=== PATIENT | male | born 1960 | race Caucasian/White ===

== ENCOUNTER 2024-03-07 12:57 | Emergency (ER) | payer OTHER, SELFPAY ==
[2024-03-07] VITALS (31 sets, daily range): BP systolic 111–151; BP diastolic 65–91; PULSE 71–132; RESP 13–23; TEMP 36.8; O2SAT 94–100
--- NOTE | 2024-03-07 13:00 | DI.CT_ITS ---
Exam(s) CT CHEST/ABD/PEL W EXAM: CT CHEST/ABD/PEL W CLINICAL HISTORY: trauma, fall off roof, mid to low back pain. TECHNIQUE: Imaging Protocol: Axial computed tomography images with coronal and sagittal reformatted images were created and reviewed CONTRAST MATERIAL: Intravenous: Omnipaque 350 Contrast volume:100 ml Oral: None COMPARISON: No exams were available for comparison FINDINGS: CHEST: LUNGS: Mild increased markings noted in the dependent aspects of both lungs. No large lung contusion nor pleural effusion. No pneumothorax evident. No incidental lung masses. No significant findings in the trachea and mainstem bronchi.. MEDIASTINUM: No evidence of sternal fracture or mediastinal hematoma. Visualized thyroid unremarkabl e.No incidental hilar nor mediastinal adenopathy. Small hiatal hernia noted. CARDIAC: Heart size is normal. There is no pericardial effusion.Thoracic aorta is intact. No aneury sm. No dissection. OSSEOUS: No clavicle fractures. No scapular fractures. No obvious rib fractures.Compression fractur e of T12 which extends into the right pedicle and with 5 mm retropulsion of the posterior cortex whic h compresses the thecal sac. Also fracture of the T11 spinous process and fractures of the right tra nsverse process is of L1 and L2.. ABDOMEN: There is no ascites. No evidence of bowel wall nor mesenteric hematoma LIVER: Intact. No laceration evident. No subcapsular hematoma. No incidental liver lesions nor dil ated intrahepatic ducts. GALLBLADDER/BILIARY: No obvious gallbladder pathology. CBD is not dilated. PANCREAS: No incidental pancreatic masses. Pancreatic duct is not dilated. Pancreas appears unremar kable. SPLEEN: Intact. Normal size. No laceration. There are surgical clips medial to the spleen noted. Splenic and portal veins are patent. ADRENALS: There are no significant adrenal masses. KIDNEYS: There are no renal lacerations nor evidence of subcapsular hematomas. No focal findings in the right kidney. Tiny benign cyst in the inferior pole left kidney noted which does not require fol low-up.. No incidental significant renal masses. ABDOMINAL AORTA: Appears intact. No aneurysm. No dissection. No significant findings in the aortoi liac segments. LYMPH NODES: There is no retroperitoneal nor paraaortic adenopathy. ABDOMINAL WALL: No evidence of significant anterior abdominal wall nor inguinal hernia. No significa nt subcutaneous bruising evident. GI: There is no evidence of bowel obstruction. PELVIS: LYMPH NODES: There is no intrapelvic nor inguinal adenopathy. GI: No evidence of appendicitis.No evidence of sigmoid diverticulitis. URINARY BLADDER: Appears unremarkable. No intraluminal clots. Bladder is not distended. No inciden joy masses in the bladder. REPRODUCTIVE: Prostate size is normal. Seminal vesicles unremarkable. OSSEOUS: No evidence of pelvic nor hip fractures. Other fractures as described above. No diastasis of the symphysis pubis and SI joints. IMPRESSION: 1. Compression fracture of T12 with 5 mm retropulsion of the posterior cortex and compression of the thecal sac at this level. There is also a spinous process fracture of T11. 2. Also noted are mildly displaced acute appearing fractures of the right transverse processes of L1 and L2. 3. Other findings as above. RADIATION DOSE DELIVERED: 1,042.57mGy.cm Total DLP DATA REPOSITORY: All CT scans at this facility are submitted to the National Radiology Data Registry (NRDR) Dose Index Registry (DIR) with the [employer] (A[employer]). RADIATION OPTIMIZATION: All CT scans at this facility use at least one of these dose optimization te chniques: automated exposure control; mA and/or kV adjustment per patient size (includes targeted exa ms where dose is matched to clinical indication); or iterative reconstruction.
--- NOTE | 2024-03-07 13:00 | DI.CT_ITS ---
Exam(s) CT HEAD CERVICAL SPINE WO EXAM: CT HEAD CERVICAL SPINE WO CLINICAL HISTORY: trauma, fall off roof, loc, repetitive questions. TECHNIQUE: Imaging Protocol: Axial computed tomography images with coronal and sagittal reformatted images were created and reviewed COMPARISON: No exams were available for comparison FINDINGS: BRAIN: There are no skull fractures nor fluid in the visualized paranasal sinuses. There is no evidence of intracranial hemorrhage, mass effect, or shift of midline structures. There are no extra-axial fluid collections. The ventricles are not enlarged or shifted and there is no blo od within the ventricular system nor within the basal cisterns. CERVICAL SPINE: Odontoid and C1 arch are intact. There is multilevel anterior fusion/DISH-type findings at C3-C6 levels. There are no fractures the a nterior vertebral bodies. However, there comminuted and distracted fractures of the spinous process of C4 and C5. Spinous process fractures at these 2 levels approach the posterior aspects of the lami aron a bilaterally. There is no offset of the spinal laminar line. Pedicles are intact at these leve ls. Facet joints appear intact and without malalignment There is multilevel chronic degenerative disc disease. Multilevel mild central canal stenosis. No incidental osseous lesions evident in the cervical spine. IMPRESSION: No acute intracranial findings on this noninfused CT scan of the brain. There are comminuted and distracted fractures of the spinous process C4 and C5 which approach the pos terior aspects of the laminae of these vertebral bodies. However, there are no distinct fracture tor es through the laminae a and no offset of the spinal laminar line. Pedicles and anterior vertebral b odies are intact. There is thick calcification in the anterior longtitudinal ligament from C3-C6, in clusive, this resulting in an element of affective anterior fusion at these levels. Called by myself to ER position 3024 at 2 p.m. RADIATION DOSE DELIVERED: 1,521.14mGy.cm Total DLP DATA REPOSITORY: All CT scans at this facility are submitted to the National Radiology Data Registry (NRDR) Dose Index Registry (DIR) with the [employer] (ACR). RADIATION OPTIMIZATION: All CT scans at this facility use at least one of these dose optimization te chniques: automated exposure control; mA and/or kV adjustment per patient size (includes targeted exa ms where dose is matched to clinical indication); or iterative reconstruction.
--- NOTE | 2024-03-07 13:10 | DI.CT_ITS ---
Exam(s) CT THORACIC LUMBAR SPINE REC EXAM: CT THORACIC LUMBAR SPINE REC CLINICAL HISTORY: trauma, fall off roof, mid to low back pain TECHNIQUE: COMPARISON: CT CT CHEST/ABD/PEL W from 03/07/2024 FINDINGS: THORACIC SPINAL COLUMN: There is a acute compression fracture of T12 vertebral body. Fracture involves the posterior cortex which is retropulsed 5 mm with compression of the thecal sac at this level. The fracture extends int o the right pedicle and there is also fracture of the right transverse process at this level. Also f racture of the right transverse process of L1 and fracture of the right transverse process of L2. Tr ansverse process is of L3 and below are intact. There is a minimally displaced fracture of the spinous process of T11. LUMBOSACRAL SPINAL COLUMN: There are no compression fractures of the lumbar vertebrae. No listhesis. No pars defects. No face t malalignment. There are right-sided transverse process fractures of L1 and L2. No spinal canal st enosis. Sacroiliac joints appear unremarkable. No sacral fractures identified. IMPRESSION: Acute compression fracture of T12 with 5 mm retropulsion of the posterior cortex with compression of the thecal sac at this level. Fracture line extends into the anterior aspect of the right pedicle. Also noted is a fracture of the spinous process of T11. Also noted are mildly displace fractures of the right transverse process is of L1 and L2. See separate CT cervical spine report for significant cervical spine findings. Called by myself to ER physician
[2024-03-07 13:22] LABS: Abs Immature Grans 0.11 10^3/uL (0.0-0.06); Absolute Basophil Count 0.05 10^3/uL (0.0-0.2); Absolute Eosinophil Count 0.07 10^3/uL (0.0-0.7); Absolute Lymphocyte Count 0.82 10^3/uL (1.2-3.4); Absolute Monocyte Count 0.95 10^3/uL (0.1-0.8); Absolute Neutrophil Count 14.69 10^3/uL (1.2-6.7); Basophils % 0.3 %; Eosinophils % 0.4 %; HCT 43.1 % (40.0-50.0); HGB 14.8 g/dL (13.5-17.5); Immature Grans % 0.7 %; Lymphocytes % 4.9 %; MCH 31.7 pg (27.0-33.0); MCHC 34.3 % (32.0-36.0); MCV 92 fL (80-95); MPV 9.3 fL (8.0-11.0); Monocytes % 5.7 %; Platelet Count 259 10^3/uL (130-400); RBC 4.67 10^6/uL (4.36-5.78); RDW 13.7 % (11.8-14.1); RDW-SD 46.7 fL; WBC 16.69 10^3/uL (4.4-10.8)
[2024-03-07] MEDS: Normal Saline - Diluent 50 ML VIAL IJ (13:28)
[2024-03-07] MEDS: Omnipaque 350 MG/ML 100 ML BTL IJ (13:29)
[2024-03-07 13:39] LABS: ALT 34 U/L (16-63); AST 34 U/L (15-37); Albumin 3.8 g/dL (3.4-5.0); Alkaline Phosphatase 45 U/L (46-116); Anion Gap 7.6 mmol/L (3-11); BUN 16 mg/dL (7-18); Bilirubin, Total 0.75 mg/dL (0.2-1.0); CO2 26.4 mmol/L (21.0-32.0); CREATININE 1.1 mg/dL (0.70-1.30); Calcium 9.4 mg/dL (8.5-10.1); Chloride 104 mmol/L (98-107); Glucose 131 mg/dL (74-106); Potassium 4.4 mmol/L (3.5-5.1); Sodium 138 mmol/L (136-145); Total Protein 6.8 g/dL (6.4-8.2)
--- NOTE | 2024-03-07 13:40 | ED.GENADUL_ITS ---
Discharge Plan Disposition Patient Disposition: Transfer-Acute Inpatient Care Specific Acute Inpt Facility: [facility] Condition: Serious Discharge Details Clinical Impression: Closed T12 spinal fracture, Closed fracture of transverse process of lumbar vertebra, Closed fracture of spinous process of thoracic vertebra, Closed fracture of spinous process of cervical vertebra Primary Care Provider: Hilaria,Local ED Provider: Rodrick Estrada Home Meds and New Rx's Prescriptions: No Action zolpidem 7.5 mg capsule 7.5 mg PO PRN HPI General Mode of arrival: EMS . Date/Time Provider Initiated Documentation: 03/07/24 12:59 . Limitations to Documentation: no limitations . Information obtained by: patient and EMS . HPI Narrative: 63-year-old male presents with chief complaint of back pain. Patient notes that he accidentally fell off a 12 foot roof, ladder slipped as he was repairing chimney. He fell to the ground and did have loss of consciousness. He is noted to have repetitive questioning and route. Patient notes severe pain in his mid to low back. No associated numbness or tingling. He also notes some pain in his neck and mild headache. No chest pain or abdominal pain. He does have some pain in his left ankle. Related Data Home Medications ?Medication ?Instructions ?Recorded ?Confirmed zolpidem 7.5 mg capsule 7.5 mg PO PRN 03/07/24 03/07/24 Allergies Allergy/AdvReac Type Severity Reaction Status Date / Time No Known Allergies Allergy Unverified 03/07/24 13:11 General Stated Complaint: Trauma SUNDAR: 3 Review of Systems All systems reviewed & are unremarkable except as noted in HPI and below Musculoskeletal Musculoskeletal: Reports as per HPI Exam Const General: cooperative and no acute distress [facility] Head: normocephalic and atraumatic Mouth: moist mucous membranes Eyes Conjunctivae: normal conjunctivae Sclera: normal sclerae EOM: EOM intact bilaterally Neck Neck: trachea midline and supple Resp Auscultation: clear to auscultation bilaterally, no rales, no rhonchi and no wheezes Cardio Rate: regular rate and not tachycardic Rhythm: regular rhythm GI Palpation: soft, not firm, no guarding, no masses, not rigid and nontender Back/Spine/Pelvis Cervical Spine: collar present, cervical spinal tenderness and No step off deformity Thoracic/Lumbar Spine: thoracic spinal tenderness and lumbar spinal tenderness Skin General skin exam: no rashes or lesions noted Neuro General: patient alert, patient awake, patient oriented x3 and tone normal Cognition: normal cognition Motor: strength 5/5 throughout Sensory Exam: no sensory deficits noted Extrem General: no edema Psych Appearance: grossly normal Mental Status: mental status grossly normal Speech and Movement: speech and movement normal Course Vital Signs Vital signs: Vital Signs Temperature 36.8 C 03/07/24 13:00 Pulse 72 03/07/24 13:00 Respiratory Rate 20 03/07/24 13:00 Blood Pressure 114/65 03/07/24 13:00 Pulse Oximetry 97 03/07/24 13:00 Temperature 36.8 C 03/07/24 13:00 Temperature Source Oral 03/07/24 13:00 Pulse 72 03/07/24 13:00 Respiratory Rate 20 03/07/24 13:00 Blood Pressure 114/65 03/07/24 13:00 Blood Pressure Position Supine 03/07/24 13:00 Pulse Oximetry 97 03/07/24 13:00 Oxygen Delivery Method Room Air 03/07/24 13:00 Oxygen Flow Rate 0 03/07/24 13:00 Pain Level 8 03/07/24 13:00 Lab/Test Results Lab/Test Results: Laboratory Tests Range/Units 03/07/24 13:13 WBC (4.4-10.8) 10^3/uL 16.69 H RBC (4.36-5.78) 10^6/uL 4.67 Hgb (13.5-17.5) g/dL 14.8 Hct (40.0-50.0) % 43.1 MCV (80-95) fL 92 MCH (27.0-33.0) pg 31.7 MCHC (32.0-36.0) % 34.3 RDW (11.8-14.1) % 13.7 Plt Count (130-400) 10^3/uL 259 MPV (8.0-11.0) fL 9.3 Immature Gran % % 0.7 Neutrophils % % 88.0 Lymphocytes % % 4.9 Monocytes % % 5.7 Eosinophils % % 0.4 Basophils % % 0.3 Nucleated RBC % (0.0-0.3) % 0.0 Absolute Neutrophils (1.2-6.7) 10^3/uL 14.69 H Absolute Lymphocytes (1.2-3.4) 10^3/uL 0.82 L Absolute Monocytes (0.1-0.8) 10^3/uL 0.95 H Absolute Eosinophils (0.0-0.7) 10^3/uL 0.07 Absolute Basophils (0.0-0.2) 10^3/uL 0.05 Medical Decision Making 7804 -- 63-year-old male here with mid to low back pain after 12 foot fall from roof. Patient hemodynamically stable. Airway intact. Saturating well in no respiratory distress. Concern for acute spinal fracture. Consider acute intracranial traumatic hemorrhage. Considered solid organ injury. CT of the head was interpreted by radiology as negative. CT of the cervical spine was interpreted by radiology: Spinous process C4 and C5 with mild displacement. CT of the thoracic and lumbar spine interpreted by radiology: T12 fracture with 5 mm of retropulsion, T11 spinous process fracture, L1 and L2 right transverse process fracture. CT of the abdomen pelvis was interpreted by radiology as negative other than noted spinal fractures. Patient does have some contusion to left distal tib-fib anteriorly with mild swelling. I will obtain x-ray. I have placed a call to [facility] [place] to request transfer to trauma team. CT imaging sent for review. Awaiting callback. Patient was given Dilaudid and acetaminophen IV for pain. 1530 --I spoke with Dr. Wetzel, [facility] trauma surgeon, discussed ED presentation course, he will accept the patient in transfer. He recommends maintaining c- collar and spinal mobilization. Left ankle x-ray was interpreted by radiology as negative. Lab Data Lab results reviewed: Yes I reviewed the patient's lab results. Labs: Laboratory Tests Range/Units 03/07/24 13:13 WBC (4.4-10.8) 10^3/uL 16.69 H RBC (4.36-5.78) 10^6/uL 4.67 Hgb (13.5-17.5) g/dL 14.8 Hct (40.0-50.0) % 43.1 MCV (80-95) fL 92 MCH (27.0-33.0) pg 31.7 MCHC (32.0-36.0) % 34.3 RDW (11.8-14.1) % 13.7 Plt Count (130-400) 10^3/uL 259 MPV (8.0-11.0) fL 9.3 Immature Gran % % 0.7 Neutrophils % % 88.0 Lymphocytes % % 4.9 Monocytes % % 5.7 Eosinophils % % 0.4 Basophils % % 0.3 Nucleated RBC % (0.0-0.3) % 0.0 Absolute Neutrophils (1.2-6.7) 10^3/uL 14.69 H Absolute Lymphocytes (1.2-3.4) 10^3/uL 0.82 L Absolute Monocytes (0.1-0.8) 10^3/uL 0.95 H Absolute Eosinophils (0.0-0.7) 10^3/uL 0.07 Absolute Basophils (0.0-0.2) 10^3/uL 0.05 Sodium (136-145) mmol/L 138 Potassium (3.5-5.1) mmol/L 4.4 Chloride (98-107) mmol/L 104 Carbon Dioxide (21.0-32.0) mmol/L 26.4 Anion Gap (3-11) mmol/L 7.6 BUN (7-18) mg/dL 16 Creatinine (0.70-1.30) mg/dL 1.1 Est GFR (CKD-EPI 2020) (mL/min/1.73m2) 74.50 Glucose (74-106) mg/dL 131 H Calcium (8.5-10.1) mg/dL 9.4 Magnesium (1.8-2.4) mg/dL 2.0 Total Bilirubin (0.2-1.0) mg/dL 0.75 AST (15-37) U/L 34 ALT (16-63) U/L 34 Alkaline Phosphatase (46-116) U/L 45 L Total Protein (6.4-8.2) g/dL 6.8 Albumin (3.4-5.0) g/dL 3.8 ABO/Rh A Positive Antibody Screen NEGATIVE Quality:SDOH Health Related Social Needs: No Data to Display PFSH All Active Problems (Updated 03/07/24 @ 14:37 by Rodrick Estrada MD) Closed fracture of spinous process of cervical vertebra (Acute) Closed fracture of spinous process of thoracic vertebra (Acute) Closed fracture of transverse process of lumbar vertebra (Acute) Closed T12 spinal fracture (Acute) Social History Smoking/Tobacco Use Status: Former Tobacco Use Smoking risk assessment performed?: Yes Alcohol Intake: current Alcohol Intake frequency: holidays/special occasions only Drug use: Never Substance use type: does not use Housing: house Do you feel safe at home: Yes Do you feel safe in your relationship?: Yes
[2024-03-07] MEDS: ACETAMINOPHEN 1,000 MG/100 ML BTL 400 MG IVPB (13:43)
[2024-03-07] MEDS: HYDROmorphone 2 MG/ML SYR 1 MG IVP (13:43)
--- NOTE | 2024-03-07 15:00 | DI.RAD_ITS ---
Exam(s) XR ANKLE LT COMPLETE EXAM: XR ANKLE LT COMPLETE CLINICAL HISTORY: pain, fall TECHNIQUE: 2D digital imaging was performed. Three views. COMPARISON: No exams were available for comparison FINDINGS: BONES: No acute fracture is present. No bony destructive lesion is seen. JOINTS:The ankle mortise is normally aligned. SOFT TISSUE: Normal. IMPRESSION: Unremarkable radiographs of the left ankle. DATA REPOSITORY: RADIATION DOSE DELIVERED:
[2024-03-07] MEDS: Midazolam 2 MG/2 ML VIAL IM (15:19)
== END 2024-03-07 15:54 | disposition short-term general hospital (02) ==
PROVIDERS: Emergency Provider Student in an Organized Health Care Education/Training Program
DX: S22.088A Other fracture of T11-T12 vertebra, initial encounter for closed fracture (principal); S32.018A Other fracture of first lumbar vertebra, initial encounter for closed fracture; S32.038A Other fracture of third lumbar vertebra, initial encounter for closed fracture; S12.391A Other nondisplaced fracture of fourth cervical vertebra, initial encounter for closed fracture; S12.491A Other nondisplaced fracture of fifth cervical vertebra, initial encounter for closed fracture; Z87.891 Personal history of nicotine dependence; W17.89XA Other fall from one level to another, initial encounter; Y93.H9 Activity, other involving exterior property and land maintenance, building and construction; Y92.018 Other place in single-family (private) house as the place of occurrence of the external cause
CPT/HCPCS: 36415; 74177; 80053; 86850; 86900; 86901; 96372; 96374; 99285; 70450; 71260; 72125; 73610; 83735; 85025; 99284; J0131; J1170; J2250; J3490